=== PATIENT | female | born 1995 | race Caucasian/White ===

== ENCOUNTER 2018-06-05 21:36 | Emergency (ER) | payer MEDICAID ==
[~2018-06-05] VITALS: Ht 152.4 cm; Wt 53.1 kg
[~2018-06-05 21:36] MED LIST: FERR-252 PO; PRE NATAL VITS; PREN-385 PO
[2018-06-05 21:44] VITALS: BP 134/81
--- NOTE | 2018-06-05 21:54 | NUR ---
PT AMBULATED TO BED 12 WITH VSS.
--- NOTE | 2018-06-05 21:55 | NUR ---
23/ PRESENTS TO ED, C/O 01/29 [place] INTERMITTENT EPIGASTRIC PAIN, RADIATING TO RUQ AND R FLANK, INTERMITTENTLY X5 MONTHS, WORSENING TODAY. PT REPORTS NAUSEA. DENIES FEVER, VOMITING, DIARRHEA, CONSTIPATION OR DYSURIA. LBM TODAY. BS ACTIVE X4, ABD SOFT FLAT TENDER. PT AOX4, GCS 15, RR EVEN AND UNLABORED, CRYING IN MODERATE DISTRESS. 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
[2018-06-05] MEDS ORDERED: ONDANSETRON 4 MG/2 ML VIAL IVP ONE (22:00)
[2018-06-05] MEDS ORDERED: MORPHINE SULFATE 4 MG/ML SYR IVP ONE (22:00)
--- NOTE | 2018-06-05 22:02 | NUR ---
Ultrasound at bedside.
[2018-06-05 22:14] LABS: BASOPHILS % (AUTO) 0.2 % (0.0-2.0); EOSINOPHILS # (AUTO) 0.2 K/uL (0-0.4); HEMATOCRIT 28.8 % (36-48); HEMOGLOBIN 8.5 g/dL (12.0-16.0); LYMPHOCYTES # (AUTO) 2.6 K/uL (2.5-16.5); LYMPHOCYTES % (AUTO) 16.1 % (20.5-51.1); MEAN CORPUSCULAR HEMOGLOBIN 20 pg (27-31); MEAN CORPUSCULAR HGB CONC 29 g/dL (33-37); MEAN CORPUSCULAR VOLUME 68.9 fL (80-94); MONOCYTES # (AUTO) 0.9 K/uL (0.8-1.0); MONOCYTES % (AUTO) 5.2 % (1.7-9.3); NEUTROPHILS # (AUTO) 12.7 K/uL (1.8-7.7); NEUTROPHILS % (AUTO) 77.5 % (42.2-75.2); PLATELET COUNT (AUTO) 395 K/uL (140-450); RED BLOOD CELL COUNT(AUTO) 4.18 MIL/uL (4.20-5.40); RED CELL DISTRIBUTION WIDTH 19.3 % (11.6-13.7); WHITE BLOOD COUNT (AUTO) 16.4 K/uL (4.8-10.8)
[2018-06-05 22:23] LABS: APPEARANCE,URINE CLEAR (CLEAR); BILIRUBIN,URINE NEGATIVE (NEGATIVE); BLOOD, URINE 3+ (NEGATIVE); COLOR,URINE YELLOW (YELLOW); LEUKOCYTE ESTERASE ,URINE TRACE (NEGATIVE); NITRITE, URINE NEGATIVE (NEGATIVE); PH,URINE 7.5 (5.0-9.0); UGLUCOSE NEGATIVE (NEGATIVE)
[2018-06-05 22:29] LABS: RBC,URINE 11-20 (MOD) /HPF (0-5)
[2018-06-05 22:37] LABS: ALBUMIN 4.3 g/dL (3.4-5.0); ANION GAP 15.7 (8-16); CARBON DIOXIDE 24.2 mmol/L (21-32); CREATININE 1.3 mg/dL (0.6-1.3); TOTAL BILIRUBIN 0.4 mg/dL (0.0-1.0)
--- NOTE | 2018-06-05 22:41 | NUR ---
PT LAYING IN BED, RR EVEN AND UNLABORED. DENIES ANY PAIN OR NAUSEA AT THIS TIME. ALL NEEDS MET.
[2018-06-05 22:44] LABS: POTASSIUM 2.9 mmol/L (3.5-5.1)
[2018-06-06] MEDS ORDERED: KCL 20 MEQ/WATER INJ PREMIX 100 ML IV ONE (00:05)
--- NOTE | 2018-06-06 00:20 | NUR ---
PT LAYING IN BED, RR EVEN AND UNLABORED. DENIES ANY NAUSEA OR PAIN AT THIS TIME. ADMINISTERED K-RIDER WITH EDUCATION, PT TOLERATING WELL. ALL NEEDS MET AT THIS TIME.
[2018-06-06 01:47] VITALS: BP 126/88
--- NOTE | 2018-06-06 01:47 | NUR ---
Patient discharged with v/s stable. Written and verbal after care instructions given and explained by Dr. Song. Patient alert, oriented and verbalized understanding of instructions. Ambulatory with steady gait. All questions addressed prior to discharge. ID band removed. Patient advised to follow up with PMD. Rx of PEPCID given. Patient educated on indication of medication including possible reaction and side effects. Opportunity to ask questions provided and answered Dr. Song.
--- NOTE | 2018-06-06 01:47 | NUR ---
Note irvin in EDM - 06/06/18 at 0152 by MARTIN Patient discharged with v/s stable. Written and verbal after care instructions given and explained. Patient alert, oriented and verbalized understanding of instructions. Ambulatory with steady gait. All questions addressed prior to discharge. ID band removed. Patient advised to follow up with PMD. Rx of PEPCID given. Patient educated on indication of medication including possible reaction and side effects. Opportunity to ask questions provided and answered.
== END 2018-06-06 01:47 | disposition home or self-care (01) ==
LOC: EDBD → MED 21:36
DX: K80.20 Calculus of gallbladder without cholecystitis without obstruction (principal); R19.7 Diarrhea, unspecified; Z79.899 Other long term (current) drug therapy
CPT/HCPCS: 36415; 76705; 80053; 81001; 81025; 82150; 83690; 85025; 87086; 96361; 96374; 96375; 99284; J2270; J2405; J3480; Q0092

== ENCOUNTER 2018-06-14 23:05 | Inpatient (IN) | payer MEDICAID ==
[~2018-06-14] VITALS: Ht 152.4 cm; Wt 54.0 kg
[2018-06-14 23:14] VITALS: BP 147/69
--- NOTE | 2018-06-14 23:18 | NUR ---
PT TAKEN TO BED 6
--- NOTE | 2018-06-14 23:18 | NUR ---
Dr. Saucedo evaluating patient at bedside.
--- NOTE | 2018-06-14 23:18 | NUR ---
23/F BIB PARENTS, C/O 5/10 INTERMITTENT EPIGASTRIC/RUQ PAIN, RADIATING TO R FLANK/BACK, X5 HRS. PT HAS HAD SIMILAR SYMPTOMS 12 DAYS AGO DUE TO CHOLELITHIASIS, REPORTS HAVING 3 EPISODES SINCES. PT REPORTS NAUSEA. DENIES FEVER, VOMITING, DIARRHEA, CONSTIPATION OR DYSURIA. PT AOX4, GCS 15, RR EVEN AND UNLABORED. LUNG SOUNDS CLEAR BL. BS ACTIVE X4, ABD SOFT ROUND TENDER TO UPPER QUADRANTS, DENIES LOWER QUADRANT TENDERNESS. HX CHOLELITHIASIS,
[2018-06-14] MEDS ORDERED: NACL 0.9% 1,000 ML IV ONE (23:23)
[2018-06-14] MEDS ORDERED: MORPHINE SULFATE 4 MG/ML SYR IVP ONE (23:25)
[2018-06-14] MEDS ORDERED: ONDANSETRON 4 MG/2 ML VIAL IVP ONE (23:25)
[2018-06-14] MEDS ORDERED: KETOROLAC 30 MG/ML VIAL IVP ONE (23:25)
[2018-06-14 23:40] LABS: BASOPHILS # (AUTO) 0.1 K/uL (0.00-0.22); EOSINOPHILS # (AUTO) 0.1 K/uL (0-0.4); HEMOGLOBIN 8.3 g/dL (12.0-16.0); MONOCYTES # (AUTO) 0.8 K/uL (0.8-1.0)
[2018-06-14 23:45] LABS: BASOPHILS % (AUTO) 1.1 % (0.0-2.0); EOSINOPHILS % (AUTO) 0.8 % (0.0-4.0); HEMATOCRIT 27.2 % (36-48); LYMPHOCYTES # (AUTO) 2.8 K/uL (2.5-16.5); LYMPHOCYTES % (AUTO) 27.1 % (20.5-51.1); MEAN CORPUSCULAR HEMOGLOBIN 21 pg (27-31); MEAN CORPUSCULAR HGB CONC 31 g/dL (33-37); MEAN CORPUSCULAR VOLUME 67.4 fL (80-94); MONOCYTES % (AUTO) 7.1 % (1.7-9.3); NEUTROPHILS # (AUTO) 6.7 K/uL (1.8-7.7); NEUTROPHILS % (AUTO) 63.9 % (42.2-75.2); PLATELET COUNT (AUTO) 391 K/uL (140-450); RED BLOOD CELL COUNT(AUTO) 4.04 MIL/uL (4.20-5.40); RED CELL DISTRIBUTION WIDTH 18.3 % (11.6-13.7); WHITE BLOOD COUNT (AUTO) 10.5 K/uL (4.8-10.8)
[2018-06-14 23:49] LABS: ANION GAP 11.6 (8-16); CARBON DIOXIDE 25.5 mmol/L (21-32); CREATININE 1.4 mg/dL (0.6-1.3); POTASSIUM 3.1 mmol/L (3.5-5.1)
[2018-06-14 23:54] LABS: TOTAL BILIRUBIN 0.6 mg/dL (0.0-1.0)
--- NOTE | 2018-06-14 23:58 | NUR ---
Ultrasound at bedside.
[2018-06-15] MEDS ORDERED: ACETAMINOPHEN 325 MG TAB PO PRN (00:05)
[2018-06-15] MEDS ORDERED: ONDANSETRON 4 MG/2 ML VIAL IVP PRN (00:05)
--- NOTE | 2018-06-15 00:16 | NUR ---
X-Ray at bedside.
[2018-06-15] MEDS ORDERED: cefTRIAXone 1,000 MG VIAL ONE (00:30)
[2018-06-15] MEDS ORDERED: FAMO-90 PO (00:33)
[2018-06-15 00:45] LABS: APPEARANCE,URINE CLEAR (CLEAR); BILIRUBIN,URINE NEGATIVE (NEGATIVE); BLOOD, URINE NEGATIVE (NEGATIVE); COLOR,URINE YELLOW (YELLOW); LEUKOCYTE ESTERASE ,URINE 1+ (NEGATIVE); NITRITE, URINE NEGATIVE (NEGATIVE); PH,URINE 7.5 (5.0-9.0); UGLUCOSE NEGATIVE (NEGATIVE)
[2018-06-15 00:52] LABS: PROTHROMBIN TIME 9.7 secs (10.8-13.4)
[2018-06-15 00:53] LABS: BARBITURATE, URINE NEG. ng/ml (NEG <=200); BENZODIAZEPINE, URINE NEG. ng/mL (NEG <=200); CANNABINOID, URINE NEG. ng/mL (NEG <=50); COCAINE, URINE NEG. ng/mL (NEG <=300); OPIATE, URINE NEG. ng/mL (NEG <=2000); PHENCYCLIDINE SCREEN,URINE NEG. ng/mL (NEG <=25)
[2018-06-15 00:57] LABS: RBC,URINE 0-5 (RARE) /HPF (0-5)
[2018-06-15 01:10] LABS: FREE T4 (FREE THYROXINE) 1.24 ng/dL (0.76-1.46); MAGNESIUM 1.9 mg/dL (1.8-2.4); THYROID STIMULATING HORMONE 1.27 uIU/mL (0.34-3.74)
--- NOTE | 2018-06-15 01:27 | NUR ---
Patient will be admitted to care of DR. GARCIA. Admited to [facility]. Will go to [id number]. Belongings list completed. Report to ORVILLE CLINE.
[2018-06-15] MEDS ORDERED: POTASSIUM CHLORIDE 10 MEQ TABER PO SCH (01:30)
--- NOTE | 2018-06-15 01:35 | NUR ---
ADMITTED THIS 23 YEAR OLD FEMALE FROM ER PER NA WITH CC OF ABDOMINAL PAIN, AMBULATED TO BED WITH STEADY GAIT, ASSESSMENT DONE, VITAL SIGNS STABLE, DENIES PAIN AT THIS TIME, ORIENTED TO ROOM AND CALL LIGHT, DR WEIR AT BEDSIDE, MAINTAIN ON NPO EXCEPT MEDS ORDERED, PLAN OF CARE DISCUSS BY DR WEIR, CALL LIGHT WITHIN REACH.
[2018-06-15 01:40] VITALS: BP 138/95
[2018-06-15] MEDS: DEXT 5% / NACL 0.9% 500 ML IV SCH ×4 (01:46→20:55)
[2018-06-15] MEDS ORDERED: SODIUM FERRIC GLUCONATE 12.5 MG/ML AMP IV ONE (03:09)
[2018-06-15] MEDS: SODIUM FERRIC GLUCONATE 125 MG in NACL 0.9% 100 ML IV SCH (03:25)
--- NOTE | 2018-06-15 03:25 | NUR ---
FERRLECIT IVPB STARTED WITH EDUCATION PROVIDED TO PT, MONITORED FOR ANY REACTION.
--- NOTE | 2018-06-15 03:56 | NUR ---
CALLED RADIOLOGY AND PER TECH HIDA SCAN WILL BE DONE LATER AND TO CALL BACK AT 0800 FOR THE EXACT TIME SINCE IT WAS A ROUTINE ORDER, DR WEIR MADE AWARE AND STATED "IT'S OK".
--- NOTE | 2018-06-15 05:00 | NUR ---
FERRLECIT DONE, NO REACTION, VITAL SIGNS STABLE, DENIES ANY PAIN, MONITORED CLOSELY.
[2018-06-15 05:02] VITALS: BP 124/80
--- NOTE | 2018-06-15 06:20 | NUR ---
SEEN PT SLEEPING, EASILY AROUSABLE, DENIES PAIN, IVF INFUSING WELL, MAINTAINED ON NPO EXCEPT MEDS, FOR HIDA SCAN TODAY.
--- NOTE | 2018-06-15 07:31 | NUR ---
CALLED RADIOLOGY ABOUT THE TIME THE HIDA SCAN WILL BE DONE, TOLD THAT TILA PEÑA WILL CALL THE RN TO LET HER KNOW ABOUT THE TIME FOR HIDA SCAN TO BE DONE, WILL ENDORSE.
--- NOTE | 2018-06-15 07:38 | NUR ---
PT AWAKE, NO SIGNS OF DISTRESS, REPORT GIVEN TO ORVILLE PEREZ FOR CONTINUITY OF CARE.
--- NOTE | 2018-06-15 07:39 | NUR ---
RECEIVED REPORT FROM NEWSPAPER DISTRIBUTOR SUPERVISOR NURSE. PT IN STABLE CONDITION. RESPIRATIONS EVEN AND UNLABORED. IV INTACT AND PATENT. CALL LIGHT AT BEDSIDE. BED IN LOW POSITION. WILL CONTINUE TO MONITOR.
[2018-06-15 08:10] LABS: CHOL/HDL RATIO 3.1 (1-4.5)
--- NOTE | 2018-06-15 09:40 | NUR ---
[facility] CALLED. NEEDING TEST ORDERED FOR PT PROCEDURE (HIDA SCAN). INFORMED DR. YATES WHO PLACED ORDER.
[2018-06-15] MEDS: ASCORBIC ACID 500 MG TAB PO SCH ×2 (10:45→20:55)
[2018-06-15] MEDS ORDERED: MORPHINE SULFATE 2 MG/ML SYR IVP PRN (10:45)
[2018-06-15] MEDS: FERROUS SULFATE 325 MG TABEC PO SCH ×2 (10:46→17:29)
[2018-06-15] MEDS: DOCUSATE SODIUM 100 MG GELCAP PO SCH ×2 (10:46→20:55)
[2018-06-15] MEDS: LACTOBACILLUS RHAMNOSUS GG 1 EACH CAP PO SCH (10:47)
--- NOTE | 2018-06-15 13:20 | NUR ---
PT OFF FLOOR FOR HIDA SCAN.
--- NOTE | 2018-06-15 14:25 | NUR ---
MORPHINE 2MG GIVEN TO PT DURING HIDA SCAN IN RADIOLOGY.
--- NOTE | 2018-06-15 15:30 | NUR ---
PT BACK ON UNIT FOLLOWING HIDA SCAN. PT IN STABLE CONDITION.
[2018-06-15 16:00] VITALS: BP 128/74
--- NOTE | 2018-06-15 17:00 | NUR ---
ORDERED DUE MEDICATION GIVEN AT THIS TIME. PT TOLERATED WELL. WILL CONTINUE TO MONITOR.
[2018-06-15] MEDS ORDERED: KETOROLAC 30 MG/ML VIAL ONE (17:56)
[2018-06-15] MEDS ORDERED: ONDANSETRON 4 MG/2 ML VIAL ONE (17:56)
[2018-06-15] MEDS ORDERED: SUCCINYLCHOLINE CHLORIDE 200 MG/10 ML VIAL IVP ONE (17:56)
[2018-06-15] MEDS ORDERED: DEXAMETHASONE 4 MG/ML VIAL ONE (17:56)
[2018-06-15] MEDS ORDERED: PROPOFOL 200 MG/20 ML VIAL IV ONE (17:56)
[2018-06-15] MEDS ORDERED: DESFLURANE 240 ML BTL INH ONE (17:56)
[2018-06-15] MEDS ORDERED: ROCURONIUM 50 MG/5 ML VIAL IV ONE (17:56)
--- NOTE | 2018-06-15 19:30 | NUR ---
GAVE REPORT TO ASSISTANT OPERATOR NURSE FOR CONTINUITY OF CARE. PT IN STABLE CONDITION.
--- NOTE | 2018-06-15 19:35 | NUR ---
RECEIVED PT AWAKE ON BED TALKING TO FAMILY MEMBER AT BEDSIDE, VITAL SIGNS STABLE, DENIES ANY PAIN, IVF INFUSING WELL, DENIES ANY PAIN, ON FULL LIQUID DIET AND INSTRUCTED NPO AFTER MIDNIGHT, PT STATED SHE WILL SIGN THE CONSENT AFTER DOCTOR EXPLAINED TO HER THE PROCEDURE, RISK AND COMPLICATIONS, WILL ENDORSE, PLAN OF CARE DISCUSSED, CALL LIGHT WITHIN REACH.
[2018-06-15 20:00] VITALS: BP 124/87
--- NOTE | 2018-06-15 20:10 | NUR ---
PT NAUSEATED AFTER DRINKING JUICE, NO VOMITING NOTED, NOT NAUSEATED IF DRINKING WATER ONLY, MONITORED CLOSELY.
[2018-06-16] VITALS: BP 102/67
--- NOTE | 2018-06-16 | NUR ---
PT SLEEPING, EASILY AROUSABLE, VITAL SIGNS STABLE, DENIES PAIN, PT AWARE OF NPO, IVF INFUSING WELL, CONTINUE TO MONITOR CLOSELY.
[2018-06-16] MEDS: SODIUM FERRIC GLUCONATE 125 MG in NACL 0.9% 100 ML IV SCH (02:27)
--- NOTE | 2018-06-16 02:30 | NUR ---
DUE FERRLECIT ADMINISTERED, PT SLEEPING, NO SIGNS OF PAIN, MONITORED CLOSELY.
[2018-06-16] MEDS: DEXT 5% / NACL 0.9% 500 ML IV SCH (03:56)
[2018-06-16] MEDS: DEXT 5% /NACL 0.9% 1,000 ML IV SCH ×2 (05:40→18:10)
--- NOTE | 2018-06-16 06:02 | NUR ---
PT COMPLAINING OF HEADACHE, MEDICATED WITH TYLENOL PO WITH SIP OF WATER, NO BM THE WHOLE SHIFT, IVF INFUSING WELL, FOR ROEL OLSEN TODAY AT 1650, MONITORED CLOSELY.
--- NOTE | 2018-06-16 07:10 | NUR ---
PT SLEEPING, NO SIGNS OF DISTRESS, REPORT GIVEN TO ORVILLE ROBERTS FOR CONTINUITY OF CARE.
--- NOTE | 2018-06-16 07:15 | NUR ---
RECEIVED PT FROM RESTROOMS OR LOUNGES MAID NURSESON, PT IS AWAKE LYING ON THE BED WITH SIDE RAILS UP AND CALL LIGHT WITHIN REACH, PT HAS AN ON LINE ON THE LEFT AC G. 20 WITH D5 1/2 NS INFUSING AT 80ML/HR., PT DENIES PAIN AND NO SOB NOTED, NO SIGN OF DISTRESS NOTED AND WILL CONTINUE TO MONITOR PT.
[2018-06-16 08:00] VITALS: BP 125/83
[2018-06-16 08:12] LABS: ANION GAP 9.8 (8-16); CARBON DIOXIDE 24.9 mmol/L (21-32); CREATININE 1.1 mg/dL (0.6-1.3); POTASSIUM 3.7 mmol/L (3.5-5.1)
[2018-06-16 08:13] LABS: MAGNESIUM 1.6 mg/dL (1.8-2.4); PHOSPHORUS 2.5 mg/dL (2.5-4.9)
--- NOTE | 2018-06-16 08:15 | NUR ---
PT IS AWAKE AND VITAL SIGNS TAKEN AND IS WITHIN NORMAL LIMIT. NO SIGN OF DISTRESS NOTED, DENIES PAIN AND WILL MONITOR PT.
--- NOTE | 2018-06-16 08:24 | NUR ---
PATIENT HAS BEEN SCREENED AND CATEGORIZED LOW NUTRITION RISK. PATIENT WILL BE SEEN WITHIN 7 DAYS OF ADMISSION. 06/21/[address]
[2018-06-16 08:45] LABS: BASOPHILS % (AUTO) 0.7 % (0.0-2.0); EOSINOPHILS # (AUTO) 0.2 K/uL (0-0.4); LYMPHOCYTES # (AUTO) 1.6 K/uL (2.5-16.5); MONOCYTES # (AUTO) 0.5 K/uL (0.8-1.0)
[2018-06-16 08:49] LABS: EOSINOPHILS % (AUTO) 3.3 % (0.0-4.0); HEMATOCRIT 24.3 % (36-48); LYMPHOCYTES % (AUTO) 21.3 % (20.5-51.1); MEAN CORPUSCULAR HEMOGLOBIN 20 pg (27-31); MEAN CORPUSCULAR HGB CONC 29 g/dL (33-37); MEAN CORPUSCULAR VOLUME 69.3 fL (80-94); MONOCYTES % (AUTO) 7.3 % (1.7-9.3); NEUTROPHILS % (AUTO) 67.4 % (42.2-75.2); PLATELET COUNT (AUTO) 326 K/uL (140-450); RED BLOOD CELL COUNT(AUTO) 3.52 MIL/uL (4.20-5.40); RED CELL DISTRIBUTION WIDTH 18.8 % (11.6-13.7); WHITE BLOOD COUNT (AUTO) 7.4 K/uL (4.8-10.8)
[2018-06-16 08:50] LABS: HEMOGLOBIN 7.2 g/dL (12.0-16.0)
[2018-06-16] MEDS: LACTOBACILLUS RHAMNOSUS GG 1 EACH CAP PO SCH (09:40)
[2018-06-16] MEDS: DOCUSATE SODIUM 100 MG GELCAP PO SCH ×2 (09:40→21:21)
[2018-06-16] MEDS: FERROUS SULFATE 325 MG TABEC PO SCH ×2 (09:40→17:00)
[2018-06-16] MEDS: ASCORBIC ACID 500 MG TAB PO SCH ×2 (09:41→21:21)
--- NOTE | 2018-06-16 09:42 | NUR ---
PT IS AWAKE AND ON THE BEDSIDE, ORAL MEDICATIONS GIVEN AND PT TOLERATED IT WITH LITTLE WATER, PT WAS PLACED ON NPO EXCEPT MEDS. NO SIGN OF DISTRESS NOTED AND WILL MONITOR PT.
--- NOTE | 2018-06-16 11:26 | NUR ---
CONSENT FOR LAPAROSCOPIC CHOLECYSTECTOMY WAS SIGNED BY THE PT, PT VERBALIZED UNDERSTANDING OF THE SURGERY TO BE DONE ON HER AND VERBALIZED NO QUESTION WITH THE SURGEON.
[2018-06-16] MEDS ORDERED: MORPHINE SULFATE 2 MG/ML SYR IVP PRN (13:35)
[2018-06-16 15:32] LABS: ALBUMIN 3.4 g/dL (3.4-5.0); BILIRUBIN,DIRECT 0.1 mg/dL (0.0-0.3); TOTAL BILIRUBIN 0.1 mg/dL (0.0-1.0)
[2018-06-16 16:00] VITALS: BP 126/87
--- NOTE | 2018-06-16 16:37 | NUR ---
CONSENT FOR BLOOD TRANSFUSION WAS OBTAINED FROM PT NOW. PT VERBALIZED UNDERSTANDING OF THE PROCEDURE.
--- NOTE | 2018-06-16 17:05 | NUR ---
PT IS OFF THE UNIT NOW FOR LAPAROSCOPIC POSSIBLE OPEN CHOLECYSTECTOMY, POSSIBLE CHOLANGIOGRAM, VITALS SIGNS TAKEN AND BP IS 126/87,PULSE IS 93, RESPIRATION IS 16, TEMPERATURE IS 98.8 AND O2 SATURATION IS 100%. PT IS STABLE AT THIS TIME.
[2018-06-16] MEDS ORDERED: BUPIVACAINE-MPF/EPI 0.25% 30 ML VIAL INJ ONE (17:55)
[2018-06-16] MEDS ORDERED: fentaNYL 0.05 MG/ML VIAL ONE (18:05)
[2018-06-16] MEDS ORDERED: MIDAZOLAM 2 MG/2 ML VIAL ONE (18:05)
[2018-06-16] MEDS ORDERED: ceFAZolin 1,000 MG VIAL ONE (18:14)
[2018-06-16] MEDS ORDERED: ONDANSETRON 4 MG/2 ML VIAL IVP PRN (18:25)
[2018-06-16] MEDS ORDERED: HYDROmorphone 1 MG/ML AMP IVP PRN (18:25)
--- NOTE | 2018-06-16 19:25 | NUR ---
ENDORSED AND GAVE REPORT ABOUT THE PT TO FLOUR INSPECTOR NURSE, KATE THAT PT IS OFF THE UNIT AND WENT FOR A LAPAROSCOPIC CHOLECYSTECTOMY AT 1700. FAMILY OF PT ON THE BEDSIDE.
--- NOTE | 2018-06-16 19:30 | NUR ---
RECIEVED REPORT FORM ALEJANDRA JACINTO [facility] NURSE AT BEDSIDE FOR CONTINUITY OF CARE, PT IN STABLE CONDITION. Addendum: 06/16/18 at 2038 by Mae Herron RN PT IN SURGEY AT TIME OF REPORT
[2018-06-16] MEDS: HYDROmorphone PFS 2 MG/ML SYR ONE ×2 (19:47→19:57)
--- NOTE | 2018-06-16 20:34 | NUR ---
PT RETURNED FROM SURGERY IN STABLE CONDITION. SHE IS AWAKE BUT DROWSY. PT HAS 4 SURGICAL SITES ON ABDOMEN INTACT NO DRAINAGE NOTED. PT DENIES PAIN AT THIS TIME.SHE IS ON A LOW BED WITH SIDE RAILS UP X2 AND CALL TOBAR IN REACH. REPORT RECEIVED FROM OR NURSE AT BEDSIDE. V/S FOLLOWS T 98.5 P 79 R 18 B/P 155/91 02 98% ON ROOM AIR. FAMILY AT BEDSIDE.
--- NOTE | 2018-06-16 21:10 | NUR ---
PT IN LOW BED NO S/S OF PAIN OR DISTRESS. PT AROUSABLE TO NAME AND LIGHT TOUCH. V/S FOLLOWS T 97.9 P 72 R 18 B/P 135/84 02 95% ON ROOM AIR. PT GIVEN DUE MEDS OF ROCEPHIN IV, VITAMIN C AND COLACE. PT SAID THAT SHE HAS A LITTLE BIT OF PAIN IN UPPER ABDOMEN BUT DOESN'T WANT ANY PAIN MEDICATIONS AT THIS TIME. FAMILY MEMBER AT BEDSIDE. WILL CONTINUE TO MONITOR PT FOR SAFETY AND PAIN.
--- NOTE | 2018-06-16 22:30 | NUR ---
PT IN BED WITH VOMIT BAG IN HAND. PT SAID THAT SHE FELT NAUSEA FOR A FEW MINUTES BUT NOT ANYMORE, EXPLAINED TO PT THAT THIS IS MOST LIKELY DUE TO EFFECTS OF ANAESTHESIA. V/S FOLLOWS T 97.4 P 84 R 18 B/P 126/79 02 96% ON ROOM AIR. PT DECLINES ANY PAIN MEDICATION AT THIS TIME. IV SITE ON RIGHT F/A 22GUAGE INTACT AND FLUSHED PATENT PT RUNNING D5 AND 1/2 NS AT 80MLS/HR. DRESSINGS INTACT.
[2018-06-17] VITALS: BP 127/85
--- NOTE | 2018-06-17 | NUR ---
PT IN LOW BED WITH SIDE RAILS UP X2. IV SITE INTACT AND RUNNING 80MLS/ D51/2 N/S AT 80MLS/HR. PT ASLEEP BUT AROUSABLE TO NAME AND LIGHT TOUCH. PT SAID THAT SHE HAS MINIMAL PAIN IN UPPER RIGHT QUAD AND DECLINES PAIN MED AT THIS TIME. V/S FOLLOWS T 97.4 P 88 R 18 B/P 127/85 02 99% ON ROOM AIR. PT REQUESTED ICE CHIPS WHICH WAS GIVEN AT BEDSIDE. PT ENCOURAGED TO CALL FOR ASSISTANCE WHEN SHE NEEDS TO USE THE TOILET, PT VERBALIZED UNDERSTANDING CALL TOBAR IN REACH AND FAMILY AT BEDSIDE.
[2018-06-17] MEDS: HYDROcodone/APAP 7.5/325 MG 1 TAB PO PRN ×3 (02:59→19:50)
--- NOTE | 2018-06-17 03:04 | NUR ---
PT C/O MODERATE PAIN ABDOMEN. GIVEN 1 TAB NORCO PO/PRN. PT ASSISTED UP TO TOILET AND BACK. PT WALKED WITH STEADY GAIT. BAND-AIDS INTACT VERY MINIMAL DRAINAGE NOTED. IV SITE INTACT AND RUNNING D5 N/S AT 80. PT AMBULATED BACK TO TOILET INDEPENDENTLY AND STEADILY.
[2018-06-17 06:19] LABS: BASOPHILS % (AUTO) 0.1 % (0.0-2.0); HEMATOCRIT 22.2 % (36-48); LYMPHOCYTES # (AUTO) 1.1 K/uL (2.5-16.5); LYMPHOCYTES % (AUTO) 7.4 % (20.5-51.1); MEAN CORPUSCULAR HEMOGLOBIN 21 pg (27-31); MEAN CORPUSCULAR HGB CONC 31 g/dL (33-37); MEAN CORPUSCULAR VOLUME 68.7 fL (80-94); MONOCYTES # (AUTO) 0.7 K/uL (0.8-1.0); MONOCYTES % (AUTO) 4.7 % (1.7-9.3); NEUTROPHILS % (AUTO) 87.8 % (42.2-75.2); PLATELET COUNT (AUTO) 289 K/uL (140-450); RED BLOOD CELL COUNT(AUTO) 3.24 MIL/uL (4.20-5.40); RED CELL DISTRIBUTION WIDTH 18.4 % (11.6-13.7); WHITE BLOOD COUNT (AUTO) 14.8 K/uL (4.8-10.8)
[2018-06-17 06:30] LABS: FOLIC ACID 13.7 ng/mL (>3.0)
[2018-06-17 06:35] LABS: ALBUMIN 3.1 g/dL (3.4-5.0); ANION GAP 14.4 (8-16); CARBON DIOXIDE 23.5 mmol/L (21-32); CREATININE 1.1 mg/dL (0.6-1.3); POTASSIUM 3.9 mmol/L (3.5-5.1); TOTAL BILIRUBIN 0.2 mg/dL (0.0-1.0)
[2018-06-17 06:39] LABS: HEMOGLOBIN 6.9 g/dL (12.0-16.0)
[2018-06-17 06:41] LABS: MAGNESIUM 1.4 mg/dL (1.8-2.4); PHOSPHORUS 3.6 mg/dL (2.5-4.9)
--- NOTE | 2018-06-17 07:48 | NUR ---
CRITICAL LAB REPORT BY EMILE CAIN 6.9 REPORTED TO . NEW ORDERERS NOTED. CARE ENDORSED TO SITAL RN DAYSHIFT NURSE AR BEDSIDE, FOR CONTINUITY OF CARE.
[2018-06-17 08:00] VITALS: BP 149/101
[2018-06-17] MEDS ORDERED: FUROSEMIDE 20 MG TAB PO SCH (08:00)
[2018-06-17] MEDS ORDERED: MAG SULF 2000 MG/WATER PREMIX 50 ML IV SCH (08:31)
[2018-06-17] MEDS ORDERED: SODIUM FERRIC GLUCONATE 125 MG in NACL 0.9% 100 ML IV SCH (09:00)
[2018-06-17] MEDS: ACETAMINOPHEN 325 MG TAB PO SCH ×2 (09:25→13:29)
[2018-06-17] MEDS: LACTOBACILLUS RHAMNOSUS GG 1 EACH CAP PO SCH (09:25)
[2018-06-17] MEDS: DOCUSATE SODIUM 100 MG GELCAP PO SCH ×2 (09:26→20:38)
[2018-06-17] MEDS: FERROUS SULFATE 325 MG TABEC PO SCH ×2 (09:26→17:34)
[2018-06-17] MEDS: ASCORBIC ACID 500 MG TAB PO SCH ×2 (09:29→20:38)
[2018-06-17] MEDS: NACL 0.9% 1,000 ML IV SCH (09:31)
--- NOTE | 2018-06-17 09:42 | NUR ---
ADMINISTERED MEDS TO PT ORDERED. TOLERATED WELL. BLOOD TRANSFUSION DUE ON PT. WILL ADMINISTER BLOOD TRANSFUSION ONCE MAGNESIUM INFUSION IS DONE. NO SIGN OF DISTRESS NOTED. ALL SAFETY MEASURE IN [place]. WILL CONTINUE TO MONITOR PT.
--- NOTE | 2018-06-17 11:09 | NUR ---
PT SLEEPING UNABLE TO PERFORM IS AT THIS TIME WILL RETRY LATER
--- NOTE | 2018-06-17 13:20 | NUR ---
STARTED BLOOD TRANSFUSION IN PT. VS RECORDED T 98.6, BP 145/100, RR 20, DENIES ANY PAIN, HR 97. PT TOLERATING WELL. BLOOD TRANSFUSION CONSENT OBTAINED. VERIFIED BY SECOND NURSE RN JOANNA BLOOD TRANSFUSION PROCESS. NO SIGN OF DISTRESS NOTED. PT PLAYING WITH PHONE. WILL CONTINUE TO MONITOR VS IN 15 MIN, 30 MIN, AND 1 HR INTERVAL. EDUCATED PT ON BLOOD TRANSFUSION SIDE EFFECTS. ASKED TO INFORM FOR ANY BACK PAIN, CHILLS , HIGH FEVER. VERBALISED UNDERSTANDING. WILL CONTINUE TO MONITOR PT. FAMILY AT BEDSIDE.
[2018-06-17 16:00] VITALS: BP 151/107
--- NOTE | 2018-06-17 17:20 | NUR ---
BLOOD TRANSFUSION COMPLETED AT 1720. PT TOLERATED WELL. VS NORMAL. NO SIGN OF DISTRESS NOTED. WILL CONTINUE TO MONITOR PT.
--- NOTE | 2018-06-17 19:20 | NUR ---
ENDORSED PT TO PM NURSE AT BEDSIDE. PT IN STABLE CONDITION.
--- NOTE | 2018-06-17 19:25 | NUR ---
RECEIVED ENDORSEMENT FROM AM SHIFT RN. PATIENT IS AWAKE, LYING ON THE BED. PATIENT A/Ox4, ABLE TO MAKE NEEDS KNOWN. INTRODUCED SELF, UPDATED BOARD. NO SOB OR DISTRESS NOTED. PT HAS AN ON LINE ON THE LEFT ANTECUBITAL, 20 GAUGE, INTACT AND PATENT. SKIN INTACT. BED IN THE LOWEST POSITION, CALL LIGHT WITHIN REACH. INITIAL ASSESSMENT DONE. WILL CONTINUE TO MONITOR. Addendum: 06/17/18 at 2308 by Jasen oFster RN IV LINE LEFT ANTECUBITAL, 20 GAUGE.
--- NOTE | 2018-06-17 19:50 | NUR ---
PATIENT COMPLAINED OF 6/10 ABD. PAIN. MEDICATED PER PAIN SCALE. WILL CONTINUE TO MONITOR.
--- NOTE | 2018-06-17 20:55 | NUR ---
DUE MEDS GIVEN, TOLERATED WELL. NO DISTRESS NOTED.
[2018-06-18] VITALS: BP 140/94
--- NOTE | 2018-06-18 00:21 | NUR ---
FREQUENT ROUNDS MADE, VITALS TAKEN. PATIENT ASLEEP, VISIBLE CHEST RISE AND FALL NOTED.
--- NOTE | 2018-06-18 03:45 | NUR ---
IVF CHANGED. PATIENT ASLEEP, VISIBLE CHEST RISE AND FALL NOTED. NO DISTRESS NOTED.
[2018-06-18] MEDS: NACL 0.9% 1,000 ML IV SCH (03:47)
--- NOTE | 2018-06-18 07:27 | NUR ---
ENDORSED PATIENT TO AM SHIFT RN. PATIENT IN STABLE CONDITION.
--- NOTE | 2018-06-18 07:28 | NUR ---
RECEIVED REPORT FROM AXLE AND FRAME MECHANIC NURSE. PATIENT LYING DOWN IN BED SLEEPING, AROUSABLE BY VOICE. MOTHER AT BEDSIDE. AAOX4, CALM, COOPERATIVE, SKIN COLOR APPROPRIATE TO ETHNICITY, WARM TO TOUCH. HAS SURGICAL WOUND ON ABD AREA S/P LAP RAÚL. DRESSING IS DRY AND INTACT. IV SITE INTACT, PATENT, AND INFUSING IVF PER MD ORDERS. REVIEWED PLAN OF CARE WITH PATIENT. PATIENT VERBALIZED UNDERSTANDING. SAFETY MEASURES IN PLACE, CALL LIGHT WITHIN REACH. WILL CONTINUE TO MONITOR
[2018-06-18 07:34] LABS: BASOPHILS # (AUTO) 0.1 K/uL (0.00-0.22); BASOPHILS % (AUTO) 0.6 % (0.0-2.0); EOSINOPHILS # (AUTO) 0.2 K/uL (0-0.4); EOSINOPHILS % (AUTO) 2.1 % (0.0-4.0); HEMATOCRIT 30.7 % (36-48); HEMOGLOBIN 9.6 g/dL (12.0-16.0); LYMPHOCYTES # (AUTO) 2.5 K/uL (2.5-16.5); LYMPHOCYTES % (AUTO) 23.7 % (20.5-51.1); MEAN CORPUSCULAR HEMOGLOBIN 23 pg (27-31); MEAN CORPUSCULAR HGB CONC 31 g/dL (33-37); MONOCYTES # (AUTO) 0.8 K/uL (0.8-1.0); NEUTROPHILS # (AUTO) 7.1 K/uL (1.8-7.7); NEUTROPHILS % (AUTO) 66.6 % (42.2-75.2); PLATELET COUNT (AUTO) 301 K/uL (140-450); RED CELL DISTRIBUTION WIDTH 22.5 % (11.6-13.7); WHITE BLOOD COUNT (AUTO) 10.7 K/uL (4.8-10.8)
[2018-06-18 08:00] VITALS: BP 133/83
[2018-06-18 08:21] LABS: MAGNESIUM 1.6 mg/dL (1.8-2.4); PHOSPHORUS 2.9 mg/dL (2.5-4.9)
[2018-06-18] MEDS ORDERED: HYDR-5092 PO (08:25)
[2018-06-18 08:29] LABS: ANION GAP 11.6 (8-16); CARBON DIOXIDE 25.7 mmol/L (21-32); CREATININE 1.2 mg/dL (0.6-1.3); POTASSIUM 3.3 mmol/L (3.5-5.1)
[2018-06-18] MEDS ORDERED: ACET-5629 PO (08:45)
[2018-06-18] MEDS: ASCORBIC ACID 500 MG TAB PO SCH (08:50)
[2018-06-18] MEDS: FERROUS SULFATE 325 MG TABEC PO SCH (08:50)
[2018-06-18] MEDS: DOCUSATE SODIUM 100 MG GELCAP PO SCH (08:50)
[2018-06-18] MEDS: LACTOBACILLUS RHAMNOSUS GG 1 EACH CAP PO SCH (08:50)
[2018-06-18] MEDS: HYDROcodone/APAP 7.5/325 MG 1 TAB PO PRN (08:57)
--- NOTE | 2018-06-18 08:58 | NUR ---
PATIENT LYING DOWN IN BED TALKING WITH FAMILY MEMBERS AT BEDSIDE. NO DISTRESS NOTED. COMPLAINS OF PAIN, NORCO GIVEN. OTHER SCHEDULED MEDICATIONS DUE GIVEN. WILL CONTINUE TO MONITOR.
[2018-06-18] MEDS ORDERED: POTASSIUM CHLORIDE 10 MEQ TABER PO ONE (11:57)
--- NOTE | 2018-06-18 12:20 | NUR ---
DISCHARGE INSTRUCTIONS PROVIDED TO PATIENT/MOTHER AT BEDSIDE. INSTRUCTIONS ON FOLLOW-UP WITH DR. NEVILLE, PCP, SURGICAL WOUND MANAGEMENT, AND DIET REGIMEN PROVIDED TO PATIENT. PATIENT VERBALIZED COMPLETE UNDERSTANDING. ANSWERED ALL OF PATIENT'S/FAMILY QUESTIONS REGARDING DISCHARGE. IV SITE REMOVED WITH MINIMAL BLOOD AND LUMEN COMPLETELY INTACT. ID BANDS REMOVED. ESCORTED PATIENT DOWN TO LOBBY VIA STEADY AMBULATION. PATIENT DISCHARGED TO HOME AT THIS TIME IN STABLE CONDITION.
[2018-06-18] MEDS ORDERED: CEPH500C16 PO (12:47)
[2018-06-18] MEDS ORDERED: FER325 PO (12:47)
== END 2018-06-18 12:20 | disposition home or self-care (01) | DRG 263 ==
LOC: MED 23:05 → EDBD 06-15 00:05 → MMU 06-15 00:05
PROVIDERS: ADMIT General Practice; ATTEND General Practice
PROC: BF141ZZ Fluoroscopy of Gallbladder, Bile Ducts and Pancreatic Ducts using Low Osmolar Contrast (ICD-10-PCS; 2018-06-16)
PROC: 0FT44ZZ Resection of Gallbladder, Percutaneous Endoscopic Approach (ICD-10-PCS; principal; 2018-06-16 16:50)
PROC: 30233N1 Transfusion of Nonautologous Red Blood Cells into Peripheral Vein, Percutaneous Approach (ICD-10-PCS; 2018-06-17)
DX: K80.70 Calculus of gallbladder and bile duct without cholecystitis without obstruction (principal); N17.0 Acute kidney failure with tubular necrosis; E44.0 Moderate protein-calorie malnutrition; K85.90 Acute pancreatitis without necrosis or infection, unspecified; N39.0 Urinary tract infection, site not specified; E83.42 Hypomagnesemia; E87.6 Hypokalemia; D64.9 Anemia, unspecified; Z68.23 Body mass index [BMI] 23.0-23.9, adult
CPT/HCPCS: 36415; 71045; 76705; 77003; 78445; 80048; 80053; 80076; 80305; 81001; 81025; 82150; 82272; 82374; 82607; 82728; 82746; 83036; 83540; 83690; 83735; 83880; 84100; 84439; 84443; 84484; 85025; 85045; 85610; 85730; 86886; 86900; 86901; 86920; 87040; 87081; 87086; 88304; 99285; C1887; J0330; J0690; J0696; J1100; J1170; J1644; J1885; J2250; J2270; J2405; J2704; J2916; J3010; J3475; J3490; J7030; J7042; J7060; P9016; Q0092; Q0163